=== PATIENT | female | born 1985 | race African-American/Black ===

== ENCOUNTER 2021-09-03 15:57 | Inpatient (IN) ==
[2021-09-03 17:01] LABS: Basophils # 0.1 10*3/uL (0.0-0.2); Basophils % 0.8 % (0.0-0.8); Eosinophils % 0.3 % (0.00-10.9); Hematocrit 34.8 VOL% (35.7-47.0); Hemoglobin 11.3 GM/DL (12.0-16.0); Immature Granulocytes % 0.3 %; Immature Granulocytes Absolute 0.02 #; Lymphocytes # 2.8 10*3/uL (1.4-4.0); Mean Corpuscular HGB Conc 32.5 GM/DL (32-36); Mean Corpuscular Volume 83.7 FL (87-102); Mean Platelet Volume 9.6 FL (9.6-12.0); Monocytes # 0.9 10*3/uL (0.11-0.8); Neutrophils % 39.6 % (38.7-73.9); Platelet Count 391 T/CUMM (130-400); Red Blood Count 4.16 MC/CUMM (3.8-5.5); Red Cell Distribution Width 15.3 % (9.3-17.3); White Blood Count 6.2 T/CUMM (4-12)
[2021-09-03 17:22] LABS: Acetaminophen < 2.0 UG/ML (10-30); Salicylate < 2.8 MG/DL (2.8-20)
[2021-09-03 17:25] LABS: Alanine Aminotransferase 29 U/L (13-56); Albumin 3.6 G/DL (3.4-5.0); Alkaline Phosphatase 65 U/L (45-117); Aspartate Amino Transferase 11 U/L (0-37); Bilirubin,Total < 0.39 MG/DL (0.20-1.00); Blood Urea Nitrogen 10 MG/DL (7-18); Carbon Dioxide 28 MMOL/L (21-32); Chloride 107 MMOL/L (98-107); Glucose 98 MG/DL (74-106); Osmolality,Calculated 273.7 MOS/KG (273-304); Potassium 3.6 MMOL/L (3.5-5.1); Sodium 138 MMOL/L (136-145); Total Protein 7.7 G/DL (6.4-8.2)
[2021-09-03 17:45] LABS: Barbiturates Screen,Urine Negative (Negative); Benzodiazepines Screen,Urine Positive (Negative); Cannabinoid Screen,Urine Positive (Negative); Opiate Screen,Urine Negative (Negative); Phencyclidine Screen,Urine Negative (Negative)
[2021-09-03 18:00] LABS: Band Neutrophils 1 % (0-10); Eosinophils 2 % (0-10); Lymphocytes 44 % (20-55); Total Cells Counted 100
[2021-09-03 18:01] LABS: Anisocytosis Slight; Hypochromia 1+; Platelet Estimate Adequate
[2021-09-03 18:06] LABS: Mucus,Urine Few /LPF (Occasional); RBC,Urine 1 /HPF (0-4); Squamous Epithelial Cell,Urine Occasional /HPF (0-10); Urine Appearance Clear (Clear); Urine Color Yellow (Yellow)
[2021-09-03 18:07] LABS: Bilirubin,Urine Negative (Negative); Blood, Urine Negative (Negative); Glucose,Urine (UA) Negative (Negative); Ketones,Urine Negative (Negative); Nitrite,Urine Negative (Negative); Protein,Urine Negative (Negative); Urine Specific Gravity 1.015 (1.001-1.035); Urine Urobilinogen 0.2 eU/dL (<2.0)
[2021-09-03] MEDS ORDERED: DEXTROSE 10% 250 ML BAG IV PRN (20:53)
[2021-09-03] MEDS ORDERED: hydrALAZINE 20 MG/1 ML VIAL IV PRN (20:53)
[2021-09-03] MEDS ORDERED: GLUCAGON 1 MG VIAL IM PRN (20:53)
[2021-09-03] MEDS ORDERED: ONDANSETRON 4 MG/2 ML VIAL IV PRN (20:53)
[2021-09-03] MEDS: SODIUM CHLORIDE 0.9% 1,000 ML IV SCH (21:45)
[2021-09-03] MEDS: ACETAMINOPHEN 325 MG TABLET PO PRN (22:30)
[2021-09-04] MEDS: ACETAMINOPHEN 325 MG TABLET PO PRN ×2 (02:13→08:08)
[2021-09-04 06:23] LABS: Basophils # 0.1 10*3/uL (0.0-0.2); Eosinophils # 0.1 10*3/uL (0.0-0.87); Hematocrit 35.5 VOL% (35.7-47.0); Hemoglobin 11.3 GM/DL (12.0-16.0); Lymphocytes # 2.7 10*3/uL (1.4-4.0); Lymphocytes % 52.7 % (21.3-54.2); Mean Corpuscular HGB Conc 31.8 GM/DL (32-36); Mean Corpuscular Volume 83.9 FL (87-102); Mean Platelet Volume 9.8 FL (9.6-12.0); Monocytes # 0.6 10*3/uL (0.11-0.8); Monocytes % 11.8 % (1.7-12.7); Neutrophils % 33.5 % (38.7-73.9); Platelet Count 399 T/CUMM (130-400); Red Blood Count 4.23 MC/CUMM (3.8-5.5); Red Cell Distribution Width 15.5 % (9.3-17.3); White Blood Count 5.1 T/CUMM (4-12)
[2021-09-04 06:39] LABS: Alanine Aminotransferase 26 U/L (13-56); Albumin 3.3 G/DL (3.4-5.0); Alkaline Phosphatase 60 U/L (45-117); Aspartate Amino Transferase 11 U/L (0-37); Bilirubin,Total < 0.39 MG/DL (0.20-1.00); Blood Urea Nitrogen 10 MG/DL (7-18); Calcium 8.7 MG/DL (8.5-10.1); Carbon Dioxide 27 MMOL/L (21-32); Chloride 108 MMOL/L (98-107); Glucose 104 MG/DL (74-106); Osmolality,Calculated 273.7 MOS/KG (273-304); Potassium 3.3 MMOL/L (3.5-5.1); Sodium 138 MMOL/L (136-145); Total Protein 7.2 G/DL (6.4-8.2)
[2021-09-04 06:47] LABS: Eosinophils 1 % (0-10); Hypochromia 1+; Lymphocytes 49 % (20-55); Microcytosis Slight; Total Cells Counted 100
[2021-09-04 06:48] LABS: Platelet Estimate Normal
[2021-09-04] MEDS ORDERED: POTASSIUM CHLORIDE 20 MEQ TABLET PO ONE (07:32)
[2021-09-04] MEDS: SODIUM CHLORIDE 0.9% 1,000 ML IV SCH ×2 (07:55→16:25)
[2021-09-04] MEDS: NICOTINE 14 MG/24 HR PATCH TRANSDERM SCH (15:11)
[2021-09-04] MEDS: ENOXAPARIN 40 MG/0.4 ML SYRINGE SUBCUT SCH (20:56)
[2021-09-05] MEDS: POTASSIUM CHLORIDE 20 MEQ TABLET PO PRN ×3 (09:02→17:59)
[2021-09-05] MEDS: NICOTINE 14 MG/24 HR PATCH TRANSDERM SCH (09:03)
[2021-09-05] MEDS: SODIUM CHLORIDE 0.9% 1,000 ML IV SCH ×2 (09:04→15:00)
[2021-09-05] MEDS: ENOXAPARIN 40 MG/0.4 ML SYRINGE SUBCUT SCH (22:06)
[2021-09-06 03:57] LABS: Basophils % 0.4 % (0.0-0.8); Eosinophils % 0.4 % (0.00-10.9); Hemoglobin 10.7 GM/DL (12.0-16.0); Immature Granulocytes % 0.3 %; Immature Granulocytes Absolute 0.02 #; Lymphocytes % 54.6 % (21.3-54.2); Mean Corpuscular HGB Conc 31.5 GM/DL (32-36); Mean Corpuscular Volume 84.2 FL (87-102); Mean Platelet Volume 10.1 FL (9.6-12.0); Monocytes # 0.7 10*3/uL (0.11-0.8); Monocytes % 8.9 % (1.7-12.7); Neutrophils % 35.4 % (38.7-73.9); Platelet Count 376 T/CUMM (130-400); Red Blood Count 4.04 MC/CUMM (3.8-5.5); Red Cell Distribution Width 14.6 % (9.3-17.3); White Blood Count 7.3 T/CUMM (4-12)
[2021-09-06 04:12] LABS: Calcium 8.8 MG/DL (8.5-10.1); Osmolality,Calculated 272.7 MOS/KG (273-304)
[2021-09-06 04:20] LABS: Hypochromia Slight; Lymphocytes 52 % (20-55); Microcytosis Slight; Platelet Estimate Adequate; Total Cells Counted 100
[2021-09-06] MEDS ORDERED: MAGNESIUM SULF RIDER 2 GM/50 ML PREMIX IV ONE (07:33)
[2021-09-06 08:11] VITALS: BP 128/84
[2021-09-06] MEDS: NICOTINE 14 MG/24 HR PATCH TRANSDERM SCH (09:26)
[2021-09-06] MEDS: SODIUM CHLORIDE 0.9% 1,000 ML IV SCH (09:26)
[2021-09-06] MEDS ORDERED: MAGNESIUM OXIDE 400 MG TABLET PO ONE (10:17)
== END 2021-09-06 11:21 | disposition home or self-care (01) | DRG 756 ==
LOC: EDUNIT# → EDBD → N.ED 15:57 → N.EDINP 15:57 → SUATTDRO 20:53 → N.EDINP 22:55 → N.TELES 23:07 → SUATTDRO 09-05 07:58
PROVIDERS: ADMIT Internal Medicine; ATTEND Family Medicine